=== PATIENT | female | born 1970 | race Caucasian/White ===

== ENCOUNTER 2021-03-20 00:52 | Emergency (ER) | payer MEDICARE, SELFPAY ==
[2021-03-20 00:54] VITALS: BP 147/94; PULSE 76; RESP 16; TEMP 38.2; O2SAT 98; BMI 32.3
--- NOTE | 2021-03-20 01:34 | EX.ED.VIS.HA ---
HPI History of Present Illness Chief Complaint: Headache Informant: patient Onset/Context/Timing Onset: Days Context: Gradual Timing: Continuous Current Severity: Mild Maximum Severity: Moderate Associated Symptoms/Injury Associated Symptoms: Positive for Fever; Negative for Sore Throat, Numbness, Tingling, Preceding Aura, Visual Changes, Blurred Vision, Photophobia and Visual Loss Injury - CORTEZ: Negative for Direct Trauma, Fall and Assault Narrative Narrative: 51-year-old female states a gradual onset of headache on . She is also had earache and nausea. Denies vomiting or diarrhea. She is also had nasal congestion and mild cough. No shortness of breath. She is unvaccinated for Covid. She denies any dysuria or abdominal pain. She has no significant past medical history. She has been treating the headache with Tylenol. Prior similar symptoms: No Recent Illness/Hospitalization: No PFSH PFSH Medical History no medical history no medical history Home Medications dexamethasone [Decadron] 6 mg PO DAILY 7 Days #7 tab 03/20/21 [Rx Last Taken Unknown] ondansetron 4 mg PO Q8H 2 Days #6 tab 03/20/21 [Rx Last Taken Unknown] Allergy/AdvReac Type Severity Reaction Status Date / Time No Known Allergies Allergy Verified 12/26/14 05:37 Surgical History History of cholecystectomy Social History Smoking Status: Never smoker ROS ROS ED ROS Narrative Headache, nasal congestion, mild fever. Cough. Nausea no vomiting. Review of Systems ROS Unobtainable: Denies due to encephalopathy Constitutional Constitutional ED: Reports fever(s) Eyes Eyes: Denies blurry vision or change in vision ENT ENT ED: Reports ear pain and rhinorrhea; Denies sore throat Cardiovascular Cardiovascular: Denies chest pain Respiratory/Chest Respiratory/Chest: Reports cough; Denies dyspnea Gastrointestinal Gastrointestinal: Reports nausea; Denies abdominal pain, diarrhea or vomiting Genitourinary Genitourinary ED: Denies dysuria Musculoskeletal Musculoskeletal: Reports myalgias Integumentary Denies rash Neurologic Neurologic: Reports headache(s) Psychiatric Psychiatric: Denies depression Endocrine Endocrinology: Denies polyuria Hematologic/Lymphatic Hematologic/Lymphatic: Denies easy bruising Allergic/Immunologic Allergic/Immunologic ED: Denies urticaria EXAM Physical Exam Narrative Exam Narrative: White female no acute distress. Vital signs stable and low-grade temperature 100.8. Does not look septic or toxic. HEENT exam unremarkable. Mild dry mucous membranes. Neck nontender no lymphadenopathy. No meningismus. Able to move and touch chin to chest. Lungs clear to auscultation bilaterally. Heart regular rhythm no murmur rate about 75. Abdomen soft nontender normal bowel sounds no peritoneal signs. Moving all 4 extremities. Normal motor strength. Neurologic exam normal. NIH is 0. Const Vital Signs: 03/20/21 00:54 Temperature 100.8 F H Temperature Source Oral Pulse Rate 76 Respiratory Rate 16 Blood Pressure 147/94 H Blood Pressure Mean 111 Pulse Ox 98 Oxygen Delivery Method Room Air Positive well nourished and well developed; Negative for obese, cachectic, contractures or unkempt General Appearance ED: well developed and NAD; Negative for unkempt, cachectic, contractures, cyanotic or diaphoretic Nutritional Appearance: Negative for cachectic or obese HEENT Reports normocephalic and moist mucous membranes atraumatic; Negative for trauma or tenderness Eyes PERRL and EOMs intact bilaterally Neck no lymphadenopathy, supple, no meningeal signs and no JVD General: Negative for tenderness Resp normal respiratory effort and clear to auscultation bilaterally Auscultation: Negative for rales, rhonchi or wheezes Cardio regular rate, regular rhythm, S1 normal heart sound, S2 normal heart sound and no murmurs GI non-tender and non-distended Auscultation: normoactive bowel sounds Palpation: soft; Negative for firm, tender, guarding or rigid Back/Spine no CVA tenderness Extremity normal to inspection and full ROM General Extremety ED: Negative for edema or tenderness General Extremity: Negative for edema Neuro oriented x3 and CN's II-XII intact bilaterally Sensorium / Orientation: awake, alert, oriented to person, oriented to place and oriented to time; Negative for orientation impaired, lethargic or stuporous Coordination / Balance: [id number] test normal Speech: speech normal Motor Exam: strength 5/5 throughout Psych mental status grossly normal Appearance: Negative for unkempt Skin Lesions: no lesions Rashes: no rashes MDM MDM MDM Narrative Medical decision making narrative: Patient with viral syndrome on exam. Will be treated with IV Toradol fluids and Zofran for her symptoms. Screening labs being obtained. Covid test and chest x-ray. Repeat exam at 3 AM patient is doing well. Feels much better. She will be started on Decadron for the Covid. Zofran for the nausea. And 10-day quarantine. Lab Data Attestation: I reviewed the patient's lab results. Lab results narrative: Rapid Covid positive. Chest x-ray negative. White count normal at 5. Hemoglobin 13.9. Electrolytes normal gap of 6 normal creatinine. Glucose 99. Labs: Laboratory Results - last 24 hr 03/20/21 03/20/21 01:45 01:45 WBC 5.2 RBC 4.76 Hgb 13.9 Hct 44.2 MCV 92.9 MCH 29.2 MCHC 31.4 L RDW Std Deviation 47.6 H RDW Coeff of Jimbo 13.9 Plt Count 330 MPV 10.4 Immature Gran % (Auto) 0.400 Neut % (Auto) 77.7 H Lymph % (Auto) 11.2 L [place] % (Auto) 9.5 Eos % (Auto) 0.4 Baso % (Auto) 0.8 Absolute Neuts (auto) 4.0 Absolute Lymphs (auto) 0.58 L Nucleated RBC % 0 Differential Comment SCANNED Sodium 139 Potassium 3.5 Chloride 104 Carbon Dioxide 29.0 Anion Gap 6 BUN 16 Creatinine 0.71 Estim Creat Clear Calc 71.53 Est GFR (MDRD) Af Amer 112 Est GFR (MDRD) Non-Af 92 BUN/Creatinine Ratio 22.5 H Glucose 99 Calcium 8.9 Radiography Diagnostic Testing: Radiology Impression Chest X-Ray 03/20/21 01:55 IMPRESSION: No acute abnormal cardiopulmonary finding. Electronically Signed: French Block MD at 2:26 EDT Tel , Service support , Chest x-ray portable 1 view interpreted by myself shows no acute abnormality. Normal cardiac silhouette. No infiltrate. Read to seen by the radiologist. Discharge Plan Triage Chief Complaint: Headache ED Provider: Dragan Calle Dx/Rx/DC Orders Clinical Impression: COVID-19, Viral cephalgia Instructions: ED Viral Syndrome (Adult), Caring for Someone Who Has COVID-19 Prescriptions: New dexamethasone [Decadron] 6 mg tablet 6 mg PO DAILY 7 Days Qty: 7 RF: 0 ondansetron 4 mg tablet,disintegrating 4 mg PO Q8H 2 Days Qty: 6 RF: 0 Primary Care Provider: Care Physician,No Primary Referrals: Lorenzo aGrrett MD [STAFF PHYSICIAN] - 1 Week if not improving Care Physician,No Primary [Primary Care Provider] - Activity Restrictions/Additional Instructions: Plenty of fluids and rest. Tylenol and Motrin for body aches and fever. Daily Decadron for the Covid. Zofran as needed for nausea. 10-day quarantine from the day her symptoms began. Disposition Disposition: Home, Self Care
[2021-03-20] MEDS: Ondansetron 4 MG/2 ML Vial IV (01:48)
[2021-03-20] MEDS: Ketorolac 30 MG/ML Syringe IV (01:48)
[2021-03-20] MEDS: 0.9% Normal Saline 1,000 ML 1000 ML IV (01:48)
--- NOTE | 2021-03-20 01:55 | RAD_ITS ---
STUDY: X-RAY CHEST REASON FOR EXAM: Female, 51 years old. Fever TECHNIQUE: Portable, upright, AP chest radiograph COMPARISON: 06/03/2017 FINDINGS: The lungs are clear and expanded. There is no demonstrated pleural abnormality. Normal size heart. Normal mediastinum and kale. Normal visualized pulmonary arteries. Normal visualized aortic arch and descending thoracic aorta. Normal visualized thoracic spine. Normal visualized ribs, clavicles, and shoulders. There is no demonstrated abnormality of the visualized soft tissue structures of the upper abdomen. RAD/Chest 1 View (Portable) IMPRESSION: No acute abnormal cardiopulmonary finding. Electronically Signed: French Block MD at 2:26 EDT Tel , Service support ,
[2021-03-20 01:59] LABS: Absolute Lymphocyte Count 0.58 X10^3/uL (0.83-4.51); Basophil# 0.04 X10^3/uL; Basophil% 0.8 % (0-1); Eosinophil# 0.02 X10^3/uL; Eosinophils% 0.4 % (0-5); Hematocrit 44.2 % (37-47); Hemoglobin 13.9 g/dL (12.0-15.0); Lymphocyte # 0.58 X10^3/ul (0.83-4.51); Lymphocyte % 11.2 % (19-41); Mean Corp Hgb Conc 31.4 g/dL (32-36); Mean Corpuscular Hgb 29.2 pg (27.0-32.0); Mean Corpuscular Volume 92.9 fL (81-99); Mean Platelet Vol. 10.4 fl (6.2-12.0); Monocyte# 0.49 X10^3/uL; Monocyte% 9.5 % (0-10); NRBC Flagged by Analyzer 0 % (0-5); Neutrophil # 4.02 X10^3/uL (2.7-7.7); Neutrophil % 77.7 % (47-70); POSITIVE DIFFERENTIAL YES; Platelet Count 330 K/mm3 (150-450); RBC Distribution Width CV 13.9 % (11.6-14.6); RBC Distribution Width SD 47.6 fl (35.1-43.9); Red Blood Count 4.76 M/mm3 (4.2-5.4); White Blood Count 5.2 K/mm3 (4.4-11.0)
[2021-03-20 02:05] LABS: Differential Indicated SCAN CRITERIA MET
[2021-03-20 02:18] LABS: Anion Gap 6 (5-15); BUN 16 mg/dL (7-18); BUN/Creat Ratio 22.5 RATIO (10-20); Calcium,Total 8.9 mg/dL (8.5-10.1); Chloride 104 mmol/L (98-107); Creatinine, Serum 0.71 mg/dL (0.55-1.02); EST Glomerular Filtration Rate 92 mL/min (>60); Est Glom Filt Rate - Afr Amer 112 mL/min (>60); Estimated Creatinine Clearance 71.53 ml/min; Glucose 99 mg/dL (74-106); Potassium 3.5 mmol/L (3.5-5.1); Sodium Level 139 mmol/L (136-145)
[2021-03-20 02:24] LABS: Differential Comment SCANNED
== END 2021-03-20 03:12 | disposition home or self-care (01) ==
PROVIDERS: Emergency Provider Emergency Medicine
DX: U07.1 COVID-19 (principal); R51.9 Headache, unspecified
CPT/HCPCS: 71045; 80048; 85025; 87426; 96361; 96374; 96375; 99283; J7030; A4216; J2405

== ENCOUNTER 2021-04-14 00:37 | Emergency (ER) | payer SELFPAY ==
[2021-04-14 00:38] VITALS: BP 144/100; PULSE 80; RESP 17; TEMP 36.6; O2SAT 99
[2021-04-14 00:40] VITALS: BP 144/100; PULSE 80; RESP 16; TEMP 36.6; O2SAT 99; BMI 33.0
--- NOTE | 2021-04-14 01:07 | CT_ITS ---
STUDY: CTA CHEST REASON FOR EXAM: Female, 51 years old patient with signs and symptoms of pulmonary embolus. RADIATION DOSAGE (If Supplied By Facility): CTDIvol = ( 11.37 ) mGy, DLP = ( 409.99 ) mGycm TECHNIQUE: The examination was performed with the intravenous administration of 100 mL of Isovue-370. Post-processing of the angiographic images was performed, with multiplanar reformation and 3D reconstruction. Individualized dose optimization techniques were used for this CT. COMPARISON: Prior comparison studies are not available for review at this time. FINDINGS: Normal enhancement of the main pulmonary artery and right and left pulmonary arteries. Normal enhancement of the bilateral peripheral pulmonary arteries. There is no demonstrated pulmonary embolism. Normal thoracic aorta and visualized great vessels. There is no demonstrated aortic dissection. Normal heart and pericardium. Normal mediastinum. Normal hilar regions. Normal visualized trachea and bronchi. The lungs are well expanded. There are multiple scattered areas of abnormal groundglass attenuation noted within both lungs suggesting sequela of multifocal pneumonia. Normal pleura. Normal chest wall structures. Normal osseous structures. Normal visualized upper abdomen. CT/CTA Chest W/WO Contrast IMPRESSION: 1. No CTA demonstrated pulmonary embolism or arterial dissection. 2. Bilateral multifocal airspace disease suggesting pneumonia. Electronically Signed: Jenni Vieira MD at 3:34 EDT , Service support ,
--- NOTE | 2021-04-14 01:07 | EKG12_ITS ---
Test Reason : Blood Pressure : / mmHG Vent. Rate : 074 BPM Atrial Rate : 074 BPM P-R Int : 154 ms QRS Dur : 076 ms QT Int : 400 ms P-R-T Axes : 059 056 026 degrees QTc Int : 444 ms Normal sinus rhythm Normal ECG Confirmed by VINCENT STEINBERG, SULEIMAN ([id number]), assignment desk editor CARMEN CHAIREZ ([id number]) on 04/15/2021 9:34:22 AM Referred By: PL Confirmed By:SULEIMAN KAUR MD
[2021-04-14 01:15] LABS: Absolute Lymphocyte Count 2.23 X10^3/uL (0.83-4.51); Absolute Neutrophil Count 4.4 X10^3/uL (2.0-7.7); Basophil# 0.07 X10^3/uL; Basophil% 0.9 % (0-1); Eosinophil# 0.24 X10^3/uL; Eosinophils% 3.1 % (0-5); Hematocrit 44.8 % (37-47); Hemoglobin 14.1 g/dL (12.0-15.0); Lymphocyte # 2.23 X10^3/ul (0.83-4.51); Mean Corp Hgb Conc 31.5 g/dL (32-36); Mean Corpuscular Hgb 29.3 pg (27.0-32.0); Mean Corpuscular Volume 92.9 fL (81-99); Mean Platelet Vol. 10.8 fl (6.2-12.0); Monocyte# 0.74 X10^3/uL; Monocyte% 9.6 % (0-10); NRBC Flagged by Analyzer 0 % (0-5); Neutrophil # 4.38 X10^3/uL (2.7-7.7); Neutrophil % 57.1 % (47-70); Platelet Count 338 K/mm3 (150-450); RBC Distribution Width CV 14.6 % (11.6-14.6); RBC Distribution Width SD 49.8 fl (35.1-43.9); Red Blood Count 4.82 M/mm3 (4.2-5.4); White Blood Count 7.7 K/mm3 (4.4-11.0)
--- NOTE | 2021-04-14 01:26 | EX.ED.DYSGE1 ---
HPI History of Present Illness Chief Complaint: Abd Pain Informant: patient Narrative Narrative: Patient actually presents with left-sided chest pain not the abdominal pain that is reported on the check-in. She states her abdomen does not hurt. She has no nausea vomiting diarrhea or blood in the stool. No urinary symptoms. She states on Sunday she was talking with her father when she got onset of very focal left-sided chest pain. It does hurt when she takes a deep breath but she is not actually short of breath. No pressure. No nausea vomiting diaphoresis. Again, she is not actually short of breath although taking deep breaths hurts this. She has no history of DVT PE or family history. She has had no travel surgery immobilization but she did have Covid earlier this month. She feels that has been in proving. She is not really coughing much anymore. She has no injury that she knows of. Rest makes this better and a deep breath can make it a little bit worse. She has no hemoptysis. No leg swelling or pain. PFSH PFSH Home Medications naproxen 500 mg PO BID #14 tab 04/14/21 [Rx Last Taken Unknown] Allergy/AdvReac Type Severity Reaction Status Date / Time No Known Allergies Allergy Verified 04/14/21 00:43 Surgical History History of cholecystectomy Social History Smoking Status: Never smoker ROS ROS ED Constitutional Constitutional ED: Denies chills, fever(s) or sweats Eyes Eyes: Denies blurry vision ENT ENT ED: Denies rhinorrhea or sore throat Cardiovascular Cardiovascular: Reports chest pain; Denies palpitations Respiratory/Chest Respiratory/Chest: Denies cough or dyspnea Gastrointestinal Gastrointestinal: Denies abdominal pain, constipation, diarrhea, melena, nausea or vomiting Genitourinary Genitourinary ED: Denies dysuria or hematuria Musculoskeletal Musculoskeletal: Denies myalgias Integumentary Denies rash Neurologic Neurologic: Denies headache(s), paresthesias or weakness Psychiatric Psychiatric: Denies anxiety Endocrine Endocrinology: Denies polydipsia or polyuria Allergic/Immunologic Allergic/Immunologic ED: Denies urticaria EXAM Physical Exam Const Vital Signs: 04/14/21 00:38 04/14/21 00:40 04/14/21 03:28 Temperature 97.9 F 97.9 F Temperature Source Oral Oral Pulse Rate 80 80 68 Respiratory Rate 17 16 20 H Blood Pressure 144/100 H 144/100 H Blood Pressure Mean 114 114 Pulse Ox 99 99 Oxygen Delivery Method Room Air Room Air Positive well nourished and well developed General Appearance ED: well developed and NAD HEENT Reports moist mucous membranes Negative for trauma or tenderness Eyes General Eye ED: Negative for pale conjunctiva or scleral icterus Neck no JVD Chest Wall inspection of chest normal and palpation of chest normal Resp normal respiratory effort and clear to auscultation bilaterally Resp Narrative: She does have slight pain with deep breath but not cessation of inspiration. Auscultation: Negative for rales, rhonchi or wheezes Cardio regular rate, regular rhythm, S1 normal heart sound and no murmurs GI normal to inspection, nondistended, normoactive bowel sounds, non-tender and non-distended GI Narrative: Abdomen is completely benign. Palpation: soft Neuro oriented x3 Sensorium / Orientation: alert Psych mental status grossly normal Skin no rashes or lesions noted and no wounds MDM MDM MDM Narrative Medical decision making narrative: Patient's blood work shows normal white count hemoglobin and CBC. Electrolytes are unremarkable. Troponin is normal at 9. CTA shows no pulmonary artery embolism or arterial dissection. There is some airspace disease suggestive of pneumonia but this is probably left over from Covid pneumonia as it is multiple small areas. I think patient can go home. I think nonsteroidals and rest should be appropriate for her. If she develops fevers, worsening cough, worsening pain or any other symptoms she should return. Lab Data Attestation: I reviewed the patient's lab results. Labs: Laboratory Results - last 24 hr 04/14/21 04/14/21 00:49 00:49 WBC 7.7 RBC 4.82 Hgb 14.1 Hct 44.8 MCV 92.9 MCH 29.3 MCHC 31.5 L RDW Std Deviation 49.8 H RDW Coeff of Jimbo 14.6 Plt Count 338 MPV 10.8 Immature Gran % (Auto) 0.300 Neut % (Auto) 57.1 Lymph % (Auto) 29.0 [place] % (Auto) 9.6 Eos % (Auto) 3.1 Baso % (Auto) 0.9 Absolute Neuts (auto) 4.4 Absolute Lymphs (auto) 2.23 Nucleated RBC % 0 Sodium 139 Potassium 3.6 Chloride 104 Carbon Dioxide 28.0 Anion Gap 7 BUN 16 Creatinine 0.73 Estim Creat Clear Calc 69.57 Est GFR (MDRD) Af Amer 109 Est GFR (MDRD) Non-Af 90 BUN/Creatinine Ratio 21.9 H Glucose 98 Calcium 9.5 Troponin I High Sens 9 Radiography Diagnostic Testing: Clinical Impression(s) from Imaging Studies Chest CTA 04/14/21 01:07 IMPRESSION: 1. No CTA demonstrated pulmonary embolism or arterial dissection. 2. Bilateral multifocal airspace disease suggesting pneumonia. Electronically Signed: Jenni Vieira MD at 3:34 EDT , Service support , Discharge Plan Triage Chief Complaint: Abd Pain ED Provider: Benedicto Robles Dx/Rx/DC Orders Clinical Impression: Left-sided chest pain Instructions: ED Chest Pain, Uncertain Cause Prescriptions: New naproxen 500 MG tablet 500 mg PO BID Qty: 14 RF: 0 Primary Care Provider: Care Physician,No Primary Referrals: Terrance Garza MD [NON-STAFF] - 3-5 Days if not improving Care Physician,No Primary [Primary Care Provider] - Disposition Disposition: Home, Self Care
[2021-04-14 01:30] LABS: Anion Gap 7 (5-15); BUN 16 mg/dL (7-18); BUN/Creat Ratio 21.9 RATIO (10-20); Calcium,Total 9.5 mg/dL (8.5-10.1); Chloride 104 mmol/L (98-107); Creatinine, Serum 0.73 mg/dL (0.55-1.02); EST Glomerular Filtration Rate 90 mL/min (>60); Est Glom Filt Rate - Afr Amer 109 mL/min (>60); Estimated Creatinine Clearance 69.57 ml/min; Glucose 98 mg/dL (74-106); Potassium 3.6 mmol/L (3.5-5.1); Sodium Level 139 mmol/L (136-145); Troponin-I HS 9 pg/mL (3.0-54.0)
[2021-04-14 03:28] VITALS: PULSE 68; RESP 20
== END 2021-04-14 04:05 | disposition home or self-care (01) ==
PROVIDERS: Emergency Provider Emergency Medicine
DX: R07.89 Other chest pain (principal); Z86.16 Personal history of COVID-19
CPT/HCPCS: 71275; 80048; 84484; 85025; 93005; 96360; 96361; 99285; J7030; Q9967; A4216

== ENCOUNTER 2022-04-18 16:20 | Emergency (ER) | payer SELFPAY ==
[2022-04-18 16:27] VITALS: BP 152/95; PULSE 65; RESP 18; TEMP 36.3; O2SAT 99; BMI 30.9
--- NOTE | 2022-04-18 16:50 | RAD_ITS ---
STUDY: X-RAY - UNILATERAL RIBS ( RIGHT ) WITH CHEST REASON FOR EXAM: Female, 52 years old. pain TECHNIQUE - RIBS: 4 view(s) of the ribs. TECHNIQUE - CHEST: PA COMPARISON: None. FINDINGS - RIBS: Normal visualized ribs without a demonstrated fracture. FINDINGS - CHEST: The lungs are clear and expanded. There is no demonstrated pleural abnormality. Normal size heart. Normal mediastinum and kale. Normal visualized pulmonary arteries. Normal visualized aortic arch and descending thoracic aorta. Normal visualized thoracic spine. Normal visualized ribs, clavicles, and shoulders. There is no demonstrated abnormality of the visualized soft tissue structures of the upper abdomen. RAD/Ribs Uni Min 3V w/PA Chest IMPRESSION: RIBS: Normal x-ray examination of the ribs. CHEST: Normal x-ray examination of the chest. Electronically Signed: Jaylon Gong MD at 17:22 EDT ,
--- NOTE | 2022-04-18 17:00 | EDS_ITS ---
HPI History of Present Illness Chief Complaint: Chest Other Informant: patient Narrative Narrative: Patient states she hurt her right anterior rib last afternoon. She was giving her cat a bath. She states her bathtub is very high and up on feet. She is short so she has to reach up and leaning over it. She moved and got a sudden sharp discomfort in the right anterior rib cage. She states she is not sure if she heard a pop or crack or not. She does not fully remember this. However, she has had pain very localized to that area since. She denies being actually short of breath. No cough. No hemoptysis. No trouble eating or drinking. No problems urinating or blood in the urine. No distal numbness tingling or weakness. PFSH PFSH Home Medications naproxen 500 mg tablet 500 mg PO BID #14 tabs 04/18/22 [Rx Last Taken Unknown] Allergy/AdvReac Type Severity Reaction Status Date / Time Seasonal Allergies: Uncoded AdvReac Other Verified 04/18/22 16:26 Surgical History History of cholecystectomy Social History Smoking Status: Never smoker ROS [facility] ED Constitutional Constitutional ED: Denies chills or fever(s) ENT ENT ED: Denies rhinorrhea or sore throat Cardiovascular Cardiovascular: Reports chest pain and other Details: See history of present illness ; Denies palpitations or racing heartbeat Respiratory/Chest Respiratory/Chest: Denies cough, dyspnea or sputum Gastrointestinal Gastrointestinal: Denies abdominal pain, constipation, diarrhea, melena, nausea or vomiting Genitourinary Genitourinary ED: Denies dysuria, hematuria or urinary frequency Musculoskeletal Musculoskeletal: Denies arthralgias or myalgias Integumentary Denies abscess, Abrasions or rash Neurologic Neurologic: Denies paresthesias or weakness Hematologic/Lymphatic Hematologic/Lymphatic: Denies easy bleeding or easy bruising Allergic/Immunologic Allergic/Immunologic ED: Denies urticaria EXAM Physical Exam Const Vital Signs: 04/18/22 16:27 04/18/22 16:39 Temperature 97.3 F L Temperature Source Temporal Pulse Rate 65 Respiratory Rate 18 Respiratory Effort Normal Non-Labored Blood Pressure 152/95 H Blood Pressure Mean 114 Pulse Ox 99 Oxygen Delivery Method Room Air Positive well nourished and well developed Constitutional Narrative: Patient awake alert sitting on the edge of the bed. Nontoxic in appearance General Appearance ED: well developed HEENT Negative for trauma Neck full ROM Chest Wall inspection of chest normal Chest Narrative: No subcu air. No rash. She does have an area of point tenderness at the midclavicular line on the right toward the lower rib cage. But no crepitance can be felt. No clicking with deep breaths. But it is very reproducible there. Resp normal respiratory effort Resp Narrative: Lungs are clear throughout. I hear no wheezes rales or rhonchi. Breath sounds are equal side to side Auscultation: Negative for rales, rhonchi, wheezes or diminished lung sounds Cardio regular rhythm and no murmurs Cardio Narrative: No muffled tones. Rhythm: abnormal rhythm GI normal to inspection, nondistended, normoactive bowel sounds and non-tender GI Narrative: No tenderness in the right upper quadrant. Palpation: soft Back/Spine normal to inspection and no thoracic nor lumbar tenderness Neuro Sensorium / Orientation: alert Psych mental status grossly normal Skin no rashes or lesions noted Skin Narrative: No vesicles or wounds noted. Rashes: No rashes noted MDM MDM MDM Narrative Medical decision making narrative: X-ray is negative. I explained that not all rib fractures will show up on x- ray. This could also be a contusion. Nonsteroidals rest ice is appropriate we discussed reasons to return. We also discussed that repeat imaging in the future may show healing if there are occult rib fractures. Radiography Diagnostic Testing: Clinical Impression(s) from Imaging Studies Ribs w/Chest X-Ray 04/18/22 16:50 IMPRESSION: RIBS: Normal x-ray examination of the ribs. CHEST: Normal x-ray examination of the chest. Electronically Signed: Jaylon Gong MD at 17:22 EDT , 5 views of ribs and chest looked at by me and read by radiology shows no acute process. Discharge Plan Triage Chief Complaint: Chest Other ED Provider: Benedicto Robles Dx/Rx/DC Orders Clinical Impression: Contusion of right chest wall Instructions: ED Chest Wall Contusion Prescriptions: New naproxen 500 mg tablet 500 mg PO BID Qty: 14 0RF Stand Alone Forms: Work Status Form Primary Care Provider: Care Physician,No Primary Referrals: Isabella Lowery MD [Med Staff - Perinatal Coordinator] - 1 Week if not improving Care Physician,No Primary [Primary Care Provider] - Disposition Disposition: Home, Self Care
== END 2022-04-18 18:39 | disposition home or self-care (01) ==
PROVIDERS: Emergency Provider Emergency Medicine; Visit Provider Emergency Medicine
DX: S20.211A Contusion of right front wall of thorax, initial encounter (principal); X50.1XXA Overexertion from prolonged static or awkward postures, initial encounter; Z79.1 Long term (current) use of non-steroidal anti-inflammatories (NSAID)
CPT/HCPCS: 71101; 99282

== ENCOUNTER 2023-07-20 23:15 | Emergency (ER) | payer SELFPAY ==
[2023-07-20 23:16] VITALS: BP 191/89; PULSE 65; RESP 18; TEMP 36.5; O2SAT 100; BMI 33.0
--- NOTE | 2023-07-20 23:27 | CT_ITS ---
STUDY: CTA HEAD AND NECK WITH CONTRAST REASON FOR EXAM: Female, 53 years old. headache dizziness RADIATION DOSAGE (If Supplied By Facility): CTDIvol = ( 28.07 ) mGy, DLP = ( 1398.93 ) mGycm TECHNIQUE: CT angiography was performed with a multi-detector CT scanner. Data acquisition was obtained from the skull base through the vertex following intravenous administration of IV 100mL [id number]-370. MIP images were reconstructed from the axial data set. Post-processing of the angiographic images was performed, with multiplanar reformation and 3D reconstruction. Individualized dose optimization techniques were used for this CT. COMPARISON: No relevant priors. FINDINGS: Normal bilateral petrous carotid arteries. Normal right cavernous carotid artery with a normal supraclinoid bifurcation. Normal left cavernous carotid artery with a normal supraclinoid bifurcation. There is non-visualization of the right A1 segment of the anterior cerebral arteries consistent with either aplastic development or an occlusion. Normal left A1 segments of the anterior cerebral artery. Normal intact anterior communicating artery (ACOM). Normal bilateral A2 segments of the anterior cerebral arteries. Normal right M1 and M2 segments of the middle cerebral arteries, with a normal M1 bifurcation. Normal left M1 and M2 segments of the middle cerebral arteries, with a normal M1 bifurcation. There is non-visualization of the right posterior communicating artery (PCOM). 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 Normal bilateral vertebral arteries. Normal basilar artery with a normal basilar bifurcation. The visualized bilateral superior cerebellar (SCA) arteries are normal. Normal bilateral P1, P2 and visualized P3 segments of the posterior cerebral arteries. There is no demonstrated aneurysm of the barrow of Garcia. There is no demonstrated abnormality of the visualized brain. AORTIC ARCH: There is a bovine origin of the great vessels arising from the aortic arch with a common origin of the brachiocephalic and left common carotid artery. Normal origin of the left subclavian artery. RIGHT CAROTID ARTERIES: Normal right common carotid artery (CCA). Normal right common carotid bulb. Normal origin of the right internal carotid (ICA) artery without a hemodynamically significant stenosis. Normal visualized cervical portion of the right internal carotid artery. Normal origin of the right external carotid artery (ECA). LEFT CAROTID ARTERIES: Normal left common carotid artery (CCA). There is mild atherosclerotic plaque formation with minimal narrowing of the left carotid bulb. There is minimal atherosclerotic plaque formation of the origin of the left internal carotid artery with no stenosis. Normal visualized cervical portion of the left internal carotid artery. Normal origin of the left external carotid artery (ECA). VERTEBRAL ARTERIES: Normal bilateral vertebral arteries. CT/CTA Head AND Neck W/ Contrast IMPRESSION: Minor atherosclerotic disease through the left carotid bulb otherwise normal CT angiogram of the neck with no focal stenosis, occlusion or dissection. Nonvisualization of the right A1, likely congenital likely ectasia. Otherwise normal CT angiogram of the neck with no focal stenosis, occlusion or aneurysm. Electronically Signed: Kayla Rangel MD at 0:26 EST ,
--- NOTE | 2023-07-20 23:28 | EX.ED.DYSGE1 ---
HPI History of Present Illness Chief Complaint: Dizziness Informant: patient and family Narrative Narrative: 53-year-old female presenting to the emergency room with vertigo. Patient states that Sunday night she lay down around 0200 hrs. and began to have a sense that the room was spinning. She has had vertigo in the past. She had an ER visit in 2013 where she had 2 to 3 days of symptoms. She states that at that time she was taking meclizine. She does not have a current prescription for meclizine but had tried some meclizine from her mom 2 days ago without relief. Patient notes some associated nausea. She also notes a headache. When asked to describe her headache she states that she always has sinus problems and notes a frontal headache and occasionally gets a headache in the occipital area. She denies any arm or leg weakness loss of sensation. No visual changes but does note when she looks to the side it seems to make her spinning sensation worse. Patient denies any prior head injuries. No fevers or URI symptoms currently. She has no history of cancer, aneurysm, or stroke. She denies any recent palpitations chest pain or dyspnea. PFSH PFSH Home Medications naproxen 500 mg tablet 500 mg PO BID #14 tabs 04/18/22 [Rx Last Taken Unknown] diazepam 5 mg tablet 5 mg PO TID PRN vertigo #10 tabs 07/21/23 [Rx Last Taken Unknown] Allergy/AdvReac Type Severity Reaction Status Date / Time Seasonal Allergies: Uncoded AdvReac Other Verified 07/20/23 23:18 Surgical History History of cholecystectomy Social History Smoking Status: Never smoker [facility] ED Constitutional Constitutional ED: Denies chills, fever(s) or weight loss Eyes Eyes: Denies change in vision or diplopia ENT ENT ED: Denies ear pain, rhinorrhea or sore throat Cardiovascular Cardiovascular: Denies chest pain, orthopnea, palpitations or racing heartbeat Respiratory/Chest Respiratory/Chest: Denies cough, dyspnea or orthopnea Gastrointestinal Gastrointestinal: Reports nausea; Denies abdominal pain, diarrhea or vomiting Genitourinary Genitourinary ED: Denies dysuria, hematuria or urinary frequency Musculoskeletal Musculoskeletal: Denies arthralgias, back pain, myalgias or neck pain Integumentary Denies abscess or rash Neurologic Neurologic: Reports headache(s) and other Details: Dizziness (room spinning) ; Denies weakness Psychiatric Psychiatric: Denies anxiety, depression, suicidal ideation or suicidal thoughts Endocrine Endocrinology: Denies polydipsia, polyphagia or polyuria Allergic/Immunologic Allergic/Immunologic ED: Denies mouth swelling, tongue swelling or urticaria EXAM Physical Exam Const Vital Signs: 07/20/23 23:16 07/20/23 23:41 07/21/23 00:54 Temperature 97.7 F L Temperature Source Temporal Pulse Rate 65 84 Respiratory Rate 18 22 H Respiratory Effort Normal Respiratory Pattern Normal Blood Pressure 191/89 H 162/83 H Blood Pressure Mean 123 109 Pulse Ox 100 97 Oxygen Delivery Method Room Air Positive well nourished, well developed and obese General Appearance ED: well developed Nutritional Appearance: obese HEENT Reports normocephalic, head/scalp atraumatic and moist mucous membranes HEENT Narrative: Tympanic membranes appear normal. There is slight cerumen in the right ear canal. Left ear canal appears normal. I do not auscultate any carotid bruits. Eyes PERRL and EOMs intact bilaterally Eyes Narrative: I do not appreciate any horizontal or vertical nystagmus Neck no lymphadenopathy, supple and no JVD Resp normal respiratory effort and clear to auscultation bilaterally Cardio regular rate, regular rhythm and no murmurs GI normal to inspection, nondistended, normoactive bowel sounds and non-tender Palpation: soft Back/Spine no CVA tenderness and normal ROM Extremity normal to inspection General Extremety ED: Negative for edema General Extremity: Negative for edema Neuro oriented x3 and CN's II-XII intact bilaterally Sensorium / Orientation: alert Motor Exam: strength 5/5 throughout Psych mental status grossly normal Mood & Affect: Negative for depressed or tearful Skin no rashes or lesions noted and no wounds MDM MDM MDM Narrative Medical decision making narrative: Basic blood work was obtained is essentially negative. Noted glucose of 114. No anemia. CTA of the head and neck was obtained which demonstrates no significant stenosis or aneurysm or mass or stroke. Patient received a dose of Ativan and Zofran. She is feeling better not perfect. She is able to ambulate without difficulty. Dilcia write for her to have diazepam to try and also discussed with her the self treatment of designing positional vertigo and provided her handout. Was noted that she was hypertensive when she came in blood pressure currently down to 162/83. I recommend that she establish primary care and have her blood pressure monitored and possibly treated. History & Record Review Discussion w/independent historian: Patient and Family Additional record(s) reviewed:: Prior ED visit Lab Data Attestation: I reviewed the patient's lab results. Labs: Laboratory Results - last 24 hr 07/20/23 23:30 WBC 7.6 RBC 4.67 Hgb 13.7 Hct 43.8 MCV 93.8 MCH 29.3 MCHC 31.3 L RDW Std Deviation 45.9 H RDW Coeff of Jimbo 13.3 Plt Count 369 MPV 10.3 Immature Gran % (Auto) 0.300 Neut % (Auto) 60.6 Lymph % (Auto) 28.0 Morrill % (Auto) 6.6 Eos % (Auto) 2.9 Baso % (Auto) 1.6 H Absolute Neuts (auto) 4.6 Absolute Lymphs (auto) 2.13 Nucleated RBC % 0 Sodium 142 Potassium 3.9 Chloride 110 H Carbon Dioxide 29.0 Anion Gap 3 L BUN 13 Creatinine 0.69 Estim Creat Clear Calc 90.99 Est GFR (MDRD) Af Amer 114 Est GFR (MDRD) Non-Af 95 BUN/Creatinine Ratio 18.8 Glucose 114 H Calcium 9.6 Radiography Diagnostic Testing: Clinical Impression(s) from Imaging Studies Head/Neck CTA 07/20/23 23:27 IMPRESSION: Minor atherosclerotic disease through the left carotid bulb otherwise normal CT angiogram of the neck with no focal stenosis, occlusion or dissection. Nonvisualization of the right A1, likely congenital likely ectasia. Otherwise normal CT angiogram of the neck with no focal stenosis, occlusion or aneurysm. Electronically Signed: Kayla Rangel MD at 0:26 EST , Discharge Plan Triage Chief Complaint: Dizziness ED Provider: Tacho Leyva Dx/Rx/DC Orders Clinical Impression: Headache, Vertigo Instructions: ED Vertigo, Unspecified Prescriptions: New diazepam 5 mg tablet 5 mg PO TID PRN (Reason: vertigo) Qty: 10 0RF No Action naproxen 500 mg tablet 500 mg PO BID Qty: 14 0RF Primary Care Provider: Care Physician,No Primary Referrals: Care Physician,No Primary [Primary Care Provider] - Activity Restrictions/Additional Instructions: I do recommend following up with primary care. It was noted that your blood pressure is elevated today. I would recommend monitoring your blood pressure over the next couple of weeks and recording it. It would be important for your doctor to see these numbers and determining if you need treated for hypertension. I have also wrote for some diazepam to see if that helps for your vertigo. I have also provided you with a sheet on exercises you can try to see if it helps your vertigo. Please return to the emergency department if worsening concerns or persistent symptoms Disposition Disposition: Home, Self Care
[2023-07-20 23:44] LABS: Absolute Lymphocyte Count 2.13 X10^3/uL (0.83-4.51); Absolute Neutrophil Count 4.6 X10^3/uL (2.0-7.7); Basophil# 0.12 X10^3/uL; Basophil% 1.6 % (0-1); Eosinophil# 0.22 X10^3/uL; Eosinophils% 2.9 % (0-5); Hematocrit 43.8 % (37-47); Hemoglobin 13.7 g/dL (12.0-15.0); Lymphocyte # 2.13 X10^3/ul (0.83-4.51); Mean Corp Hgb Conc 31.3 g/dL (32-36); Mean Corpuscular Hgb 29.3 pg (27.0-32.0); Mean Corpuscular Volume 93.8 fL (81-99); Mean Platelet Vol. 10.3 fl (6.2-12.0); Monocyte% 6.6 % (0-10); NRBC Flagged by Analyzer 0 % (0-5); Neutrophil # 4.61 X10^3/uL (2.7-7.7); Neutrophil % 60.6 % (47-70); Platelet Count 369 K/mm3 (150-450); RBC Distribution Width CV 13.3 % (11.6-14.6); RBC Distribution Width SD 45.9 fl (35.1-43.9); Red Blood Count 4.67 M/mm3 (4.2-5.4); White Blood Count 7.6 K/mm3 (4.4-11.0)
[2023-07-20] MEDS: Lorazepam 2 MG/ML WCH Syringe 1 MG IV (23:44)
[2023-07-20] MEDS: Ondansetron 4 MG/2 ML Vial IV (23:44)
[2023-07-20 23:58] LABS: Anion Gap 3 (5-15); BUN 13 mg/dL (7-18); BUN/Creat Ratio 18.8 RATIO (10-20); Calcium,Total 9.6 mg/dL (8.5-10.1); Chloride 110 mmol/L (98-107); Creatinine, Serum 0.69 mg/dL (0.55-1.02); EST Glomerular Filtration Rate 95 mL/min (>60); Est Glom Filt Rate - Afr Amer 114 mL/min (>60); Estimated Creatinine Clearance 90.99 ml/min; Glucose 114 mg/dL (74-106); Potassium 3.9 mmol/L (3.5-5.1); Sodium Level 142 mmol/L (136-145)
[2023-07-21 00:54] VITALS: BP 162/83; PULSE 84; RESP 22; O2SAT 97
== END 2023-07-21 01:18 | disposition home or self-care (01) ==
PROVIDERS: Emergency Provider Emergency Medicine; Visit Provider Emergency Medicine
DX: R42 Dizziness and giddiness (principal); R51.9 Headache, unspecified; R11.0 Nausea; E66.9 Obesity, unspecified
CPT/HCPCS: 70496; 70498; 80048; 85025; 96374; 96375; 99284; Q9967; A4216; J2405

== ENCOUNTER 2024-04-17 23:16 | Emergency (ER) | payer SELFPAY ==
[2024-04-17 23:16] VITALS: BP 155/91; PULSE 70; RESP 16; TEMP 37; O2SAT 99; BMI 34.1
[2024-04-17 23:21] VITALS: BP 155/91; PULSE 70; RESP 16; TEMP 37; O2SAT 99
--- NOTE | 2024-04-17 23:26 | RAD_ITS ---
EXAM: XR CHEST, 2 VIEWS CLINICAL INDICATION: cough TECHNIQUE: Frontal and lateral views of the chest. COMPARISON: 04/18/2022. FINDINGS: LUNGS AND PLEURAL SPACES: Unremarkable. No consolidation or edema. No pneumothorax. No effusion. HEART: Unremarkable. Cardiac silhouette not enlarged. MEDIASTINUM: Central airways and mediastinal contour are unremarkable. BONES/JOINTS: Unremarkable. No acute fracture. SOFT TISSUES: Unremarkable. RAD/Chest PA and Lateral IMPRESSION: No radiographic evidence of acute cardiopulmonary disease. Electronically Signed: Jose J Agustin MD at 0:02 EDT ,
--- NOTE | 2024-04-17 23:27 | EDS_ITS ---
HPI HPI - URI History of Present Illness Chief Complaint: Cold Sx Informant: patient Onset/Context/Timing Onset: Days Context: Gradual Onset Timing: Continuous Current Severity: Mild Maximum Severity: Mild Associated Symptoms Associated Symptoms: Positive for Myalgias, Diarrhea and Productive Cough (Green sputum.) Narrative Narrative: 54-year-old female no seen past medical history. States she has had URI symptoms since Sunday night Sunday morning. No vomiting. She has had some loose stools and a productive cough of green sputum. No documented fever. No hemoptysis. Prior similar symptoms: Yes Recent Illness/Hospitalization: No ROS ROS ED ROS Narrative Productive cough of greenish sputum. Diarrhea. Constitutional Constitutional ED: Denies chills or fever(s) Eyes Eyes: Denies blurry vision ENT ENT ED: Denies ear pain Cardiovascular Cardiovascular: Denies chest pain Respiratory/Chest Respiratory/Chest: Denies cough or dyspnea Gastrointestinal Gastrointestinal: Denies abdominal pain Genitourinary Genitourinary ED: Denies dysuria Musculoskeletal Musculoskeletal: Denies arthralgias Integumentary Denies abscess Neurologic Neurologic: Denies headache(s) or paresthesias Psychiatric Psychiatric: Denies anxiety Endocrine Endocrinology: Denies cold intolerance Hematologic/Lymphatic Hematologic/Lymphatic: Denies easy bleeding Allergic/Immunologic Allergic/Immunologic ED: Denies mouth swelling PFSH PFSH Medical History Hearing decreased Seasonal allergies Migraines COVID-19 Home Medications ?Medication ?Instructions ?Recorded ?Last Taken ?Type NK 04/17/24 Unknown History Allergy/AdvReac Type Severity Reaction Status Date / Time acetaminophen (From Vicodin) AdvReac Intermediate Nausea Verified 04/17/24 23:17 hydrocodone (From Vicodin) AdvReac Intermediate Nausea Verified 04/17/24 23:17 Seasonal Allergies: Uncoded AdvReac Other Verified 04/17/24 23:17 Family History Father Diabetes CVA (cerebral vascular accident) Grandmother Arthritis Mother Arthritis Sister Breast cancer Surgical History S/P nasal surgery History of cholecystectomy Social History adopted: No household members: family current occupational status: employed current occupation: [employer] de[employer] pets and animals: No sexually active: No Smoking Status: Never smoker alcohol intake: never substance use type: does not use caffeine: Yes (1-2) Type: carbonated beverages what type of physical activity do you participate in: none do you feel safe at home: Yes EXAM Physical Exam Narrative Exam Narrative: Well-appearing 54-year-old female. Vital signs stable afebrile. Pulse ox 9 9% on room air no hypoxia. H EENT exam pupils round reactive light. Both TMs obscured by wax in the canals. Patient instructed to get [id number] Cerumenex. Posterior pharynx unremarkable. No trouble swallowing or breathing. No significant erythema or exudate. Neck nontender no lymphadenopathy. Trachea midline. Lungs clear to auscultation bilaterally. Coarse breath sounds left base. No rhonchi. No rales. Heart regular rhythm rate about 70 no murmur. Chest wall ribs nontender. Abdomen soft nontender. Back unremarkable. Moving all 4 extremities. Nontender. No edema. Patient is awake and alert no focal motor deficits. Standing and ambulates out difficulty. Const Vital Signs: 04/17/24 23:16 04/17/24 23:16 04/17/24 23:21 Temperature 98.6 F 98.6 F Temperature Source Oral Oral Pulse Rate 70 70 Respiratory Rate 16 16 Respiratory Effort Normal Non-Labored Respiratory Depth Respiratory Pattern Normal Blood Pressure 155/91 H 155/91 H Blood Pressure Mean 112 112 Pulse Ox 99 99 Oxygen Delivery Method Room Air Room Air 04/17/24 23:21 04/18/24 00:11 Temperature 98.1 F Temperature Source Pulse Rate 68 Respiratory Rate 16 Respiratory Effort Normal Non-Labored Respiratory Depth Normal Respiratory Pattern Normal Blood Pressure 140/97 H Blood Pressure Mean 111 Pulse Ox 98 Oxygen Delivery Method Room Air Positive well nourished and well developed; Negative for cachectic or contractures General Appearance ED: well developed and NAD; Negative for cachectic, contractures, cyanotic, diaphoretic or pallor Nutritional Appearance: Negative for cachectic HEENT Reports moist mucous membranes normocephalic and atraumatic Teeth and Gingiva: Negative for caries Throat: posterior oropharynx normal Eyes PERRL and EOMs intact bilaterally General Eye ED: Negative for pale conjunctiva Neck no lymphadenopathy, supple, no meningeal signs and no JVD General: Negative for anterior neck swelling or lymphadenopathy Resp normal respiratory effort and clear to auscultation bilaterally Cardio S1 normal heart sound, S2 normal heart sound and no murmurs Rate: regular rate Rhythm: regular rhythm GI non-tender and non-distended; Negative for no masses Auscultation: normoactive bowel sounds Palpation: soft; Negative for tender or guarding Back/Spine no CVA tenderness and normal ROM General Back: Negative for CVA tenderness Cervical Spine: Negative for cervical spine tenderness Thoracic Spine / Upper Back: Negative for thoracic spinal tenderness Lumbar Spine / Lower Back: Negative for lumbar spinal tenderness Sacrum: Negative for tenderness Extremity normal to inspection and full ROM General Extremety ED: Negative for cyanosis or tenderness General Extremity: Negative for cyanosis Neuro oriented x3 and CN's II-XII intact bilaterally Sensorium / Orientation: alert, oriented to person, oriented to place and oriented to time; Negative for orientation impaired or lethargic Motor Exam: strength 5/5 throughout Psych mental status grossly normal Attitude: No agitated Mood & Affect: Negative for depressed, anxious or tearful Skin General Skin Exam: Negative for jaundice or pallor Lesions: no lesions Rashes: no rashes MDM MDM MDM Narrative Medical decision making narrative: Patient with URI symptoms consistent with viral syndrome. For work she requested that I do a COVID test. I explained I doubt it would change any treatment plan. But we did run the COVID test. We are obtaining a chest x-ray due to the coarse breath sounds in her left base. Repeat exam patient doing well at 12:05 AM. She and I discussed her chest x-ray results. Patient is comfortable being discharged to home and I will call her if her COVID test comes back positive. She will be treated as a viral URI. History & Record Review Discussion w/independent historian: Patient Additional record(s) reviewed:: Prior inpatient record, Prior outpatient record, Prior ED visit and Prior labs Lab Data Attestation: I reviewed the patient's lab results. Lab results narrative: COVID, flu and RSV are negative. Radiography Chest X-Ray - ED: 2 View, Read by ED Physician, Normal, Heart, Lungs, Mediastinum, Bony Structures, No Acute Disease and Chronic Changes Diagnostic Testing: Clinical Impression(s) from Imaging Studies Chest X-Ray 04/17/24 23:26 IMPRESSION: No radiographic evidence of acute cardiopulmonary disease. Electronically Signed: Jose J Agustin MD at 0:02 EDT , Chest x-ray, 2 views, interpreted by myself and radiologist shows no acute abnormality. Normal cardiac silhouette. Normal lung cage. No pneumonia. No effusions. No infiltrate. Discharge Plan Triage Chief Complaint: Cold Sx ED Provider: Dragan Calle Dx/Rx/DC Orders Clinical Impression: Viral URI Instructions: ED URI, Viral, No Abx (Adult) Prescriptions: No Action NK Primary Care Provider: Jena Moran Referrals: Jena Moran MD [Primary Care Provider] - 1 Week if not improving Activity Restrictions/Additional Instructions: Chest x-ray normal no pneumonia. I will call you tonight if your COVID test is positive. If I do not call you if it is negative. Treat this as a viral respiratory infection. Plenty of fluids, rest. Alternate Tylenol and Motrin. Follow-up with your primary care provider if not improving in a week. Return if a lot worse. Print Language: Barbadian Disposition Disposition: Home, Self Care Discharge Date/Time: 04/18/24 00:13
[2024-04-18 00:11] VITALS: BP 140/97; PULSE 68; RESP 16; TEMP 36.7; O2SAT 98
== END 2024-04-18 00:13 | disposition home or self-care (01) ==
PROVIDERS: Emergency Provider Emergency Medicine; PCP Internal Medicine; Visit Provider Emergency Medicine
DX: J06.9 Acute upper respiratory infection, unspecified (principal); R19.7 Diarrhea, unspecified; Z11.52 Encounter for screening for COVID-19; Z86.16 Personal history of COVID-19
CPT/HCPCS: 71046; 87631; 99283

== ENCOUNTER → 2024-06-20 | Outpatient (CLI) | payer OTHER, SELFPAY ==
--- NOTE | 2024-06-20 10:39 | BI_ITS ---
MAMMOGRAPHY - BILATERAL SCREENING 3-D TOMOSYNTHESIS REASON FOR EXAM: Female, 54 years old. Routine screening PERTINENT HISTORY: Sister with breast cancer.. TECHNIQUE: 2-D mammograms and 3-D Tomosynthesis of the breast (s) were performed. CAD was performed. COMPARISON: None. FINDINGS: The breast composition is heterogeneously dense that can obscure small breast masses. There are scattered benign appearing punctate calcifications and a well-defined 1 cm nodule in the upper-outer quadrant of the left breast likely fibroadenoma or lymph node.. No dense spiculated masses or suspicious microcalcifications are identified. No architectural distortion is identified. There is no skin thickening or retraction. BI/SCRN MAMM (CAD)W/MONIKA BILAT IMPRESSION: No mammographic signs of malignancy. Routine yearly mammograms recommended. ASSESSMENT CATEGORY: BIRADS Category 2: Benign. A letter regarding these results will be sent to the patient by the facility within 30 days. FOLLOW UP RECOMMENDATION: Yearly follow up mammogram recommended. (A) Approximately 10% of breast cancers are not detected by mammography. A normal mammogram should not delay biopsy of a clinically suspicious abnormality. Electronically Signed: Lee Richards MD at 11:45 EST ,
== END | disposition home or self-care (01) ==
LOC: OPBI 10:39
PROVIDERS: PCP Internal Medicine; Referring Provider Internal Medicine; Visit Provider Internal Medicine
DX: Z12.31 Encounter for screening mammogram for malignant neoplasm of breast (principal)
CPT/HCPCS: 77063; 77067